=== PATIENT | male | born 1985 | race Caucasian/White ===

== ENCOUNTER 2021-09-18 01:14 | Emergency (ER) | payer BC, OTHER ==
[~2021-09-18] VITALS: Ht 180.3 cm; Wt 113.4 kg
[2021-09-18] MEDS ORDERED: ACETAMINOPHEN 325 MG TABLET PO ONE (01:30)
[2021-09-18] MEDS ORDERED: ACETAMINOPHEN 325 MG TABLET ONE (02:06)
--- NOTE | 2021-09-18 02:27 | NUR ---
Patient discharged to home in stable condition. Written and verbal after care instructions given. Patient verbalizes understanding of instruction. Pt ambulatory with an aide of crutches
[2021-09-18 02:50] VITALS: BP 137/72
== END 2021-09-18 02:51 | disposition home or self-care (01) ==
LOC: ER 01:17
DX: S93.491A Sprain of other ligament of right ankle, initial encounter (principal); F17.210 Nicotine dependence, cigarettes, uncomplicated; X50.1XXA Overexertion from prolonged static or awkward postures, initial encounter; Y93.01 Activity, walking, marching and hiking; Y92.89 Other specified places as the place of occurrence of the external cause; Y99.8 Other external cause status
CPT/HCPCS: 73610-TC